=== PATIENT | male | born 1960 | race Caucasian/White ===

== ENCOUNTER 2021-12-15 15:11 | Inpatient (IN) ==
[2021-12-15] MEDS ORDERED: *HR* Heparin 5,000 UNIT/ML VIAL ONE (15:26)
[2021-12-15] MEDS ORDERED: Aspirin 325 MG TABLET PO ONE (15:27)
[2021-12-15] MEDS ORDERED: Aspirin 81 MG TAB.CHEW ONE (15:27)
[2021-12-15] MEDS ORDERED: *HR* Heparin 5,000 UNIT/ML VIAL IVP ONE (15:27)
[2021-12-15] MEDS ORDERED: *HR* Heparin 5,000 UNIT/ML VIAL IVP PRN ×2 (15:27)
[2021-12-15] MEDS ORDERED: Heparin 25,000UNIT/250ML 1/2NS 25,000 UNIT/250 ML IV.SOLN IVC SCH (15:30)
[2021-12-15] MEDS ORDERED: *HR* FentaNYL (PF) 100 MCG/2 ML VIAL ONE (15:34)
[2021-12-15] MEDS ORDERED: *HR* Midazolam HCl 2 MG/2 ML VIAL ONE (15:34)
[2021-12-15] MEDS ORDERED: *HR* Ticagrelor 90 MG TABLET ONE (15:53)
[2021-12-15] MEDS ORDERED: Perflutren Lipid Microsphere 1.3 ML in 0.9 % Sodium Chloride 8.7 ML IVP PRN ×2 (15:57→16:55)
[2021-12-15] MEDS ORDERED: *HR* Atropine Sulfate 1 MG/10 ML SYRINGE ONE (16:07)
[2021-12-15] MEDS ORDERED: ISOVUE-370 200 ML INFUS..BTL ONE (16:07)
[2021-12-15] MEDS ORDERED: Nitroglycerin 1,000 MCG/5 ML VIAL IV ONE (16:07)
[2021-12-15] MEDS ORDERED: Heparin 1,000 UNITS/500 mL 500 ML ONE (16:07)
[2021-12-15] MEDS ORDERED: Tirofiban 12.5 MG/250ML 12.5 MG/250 ML BAG ONE (16:07)
[2021-12-15] MEDS ORDERED: 0.9 % Sodium Chloride 2,000 ML ONE (16:07)
[2021-12-15] MEDS ORDERED: *HR* Heparin 10,000 UNIT/10 ML VIAL ONE (16:07)
[2021-12-15 16:09] LABS: BUN/Creatinine Ratio 17 (6-26); Blood Urea Nitrogen 22 mg/dL (6-20); Calcium 8.8 mg/dL (8.6-10.3); Carbon Dioxide 21 mEq/L (23-29); Chloride 102 mEq/L (98-107); Glucose 320 mg/dL (70-105); Osmolality,Calculated 290 (280-300); Potassium 4.2 mEq/L (3.5-5.1); Sodium 132 mEq/L (136-145); Troponin I 17.75 ng/mL (< 0.04); eGFR For African Americans > 60 (> 60); eGFR For Non-African Americans 57 (> 60)
[2021-12-15] MEDS ORDERED: Naloxone 0.4 MG/ML INJ IVP PRN (16:55)
[2021-12-15 18:50] VITALS: TEMP 98.6
[2021-12-15 19:10] VITALS: BP 124/72; PULSE 69; O2SAT 96
[2021-12-15 19:13] LABS: Basophils % 0.2 %; Eosinophils % 0.1 %; Hematocrit 38.5 % (37.5-50.1); Immature Granulocytes % 0.5 % (0-4); Lymphocytes # 2.2 K/mcL (0.6-4.6); Lymphocytes % 14.8 %; Mean Corpuscular HGB Conc 33.5 g/dL (31.6-35.5); Mean Corpuscular Hemoglobin 28.9 pg (28.0-33.3); Mean Corpuscular Volume 86.1 fL (83.0-100.0); Mean Platelet Volume 10.2 fL (9.4-12.4); Monocytes # 1.7 K/mcL (0.0-1.3); Platelet Count 231 K/mcL (140-400); Red Blood Count 4.47 M/mcL (4.19-5.50); Red Cell Distribution Width 12.9 % (11.5-14.5); Segmented Neutrophils % 73.4 %
[2021-12-15 19:14] LABS: Hemoglobin 12.9 g/dL (12.9-16.9)
[2021-12-15 19:20] LABS: Heparin anti-factor XA UFH 0.45 IU/mL (0.30-0.70)
[2021-12-15 19:21] LABS: INR 1.3; Prothrombin Time 14.4 Seconds (9.4-12.1)
[2021-12-15] MEDS ORDERED: *HR* Ticagrelor 90 MG TABLET PO SCH (21:00)
[2021-12-16] MEDS ORDERED: Metoprolol XL (24 HR) Succ 25 MG TAB.ER.24H PO SCH (09:00)
[2021-12-16] MEDS ORDERED: Aspirin 81 MG TAB.CHEW PO SCH (09:00)
== END 2021-12-15 20:00 | disposition left against medical advice (07) | DRG 247 ==
LOC: ICNU 15:11 → EMEROOARM 15:11 → ICNU 17:59
PROVIDERS: ADMIT Internal Medicine Cardiovascular Disease; ATTEND Internal Medicine Cardiovascular Disease